=== PATIENT | female | born 1970 | race African-American/Black ===

== ENCOUNTER 2018-12-21 07:17 | Emergency (ER) | payer BC ==
[~2018-12-21] VITALS: Ht 165.1 cm; Wt 61.0 kg
[2018-12-21 08:45] VITALS: BP 152/89
== END 2018-12-21 08:45 | disposition home or self-care (01) ==
LOC: ER 07:17
DX: R04.0 Epistaxis (principal); I10 Essential (primary) hypertension; Z97.5 Presence of (intrauterine) contraceptive device
CPT/HCPCS: 99283